=== PATIENT | male | born 1965 | race Caucasian/White ===

== ENCOUNTER 2017-05-12 18:32 | Emergency (ER) | payer SELFPAY ==
--- NOTE | 2017-05-12 19:01 | PDOC ---
History of Present Illness - General History Source: Patient Exam Limitations: No Limitations - History of Present Illness Initial Comments: 05/12/17 19:18 The patient presents to the emergency department complaining of a throbbing right thumb pain with minimal bleeding underneath thumbnail. He caught his right thumb on a shelf at work. His last tetanus is unknown. He iced his thumb, otherwise no pain. He denies experiencing similar symptoms in the past. He denies any other complaints/symptoms at this time. <AlfieKennasailaja - Last Filed: 05/12/17 19:21> - General History Source: Patient Exam Limitations: No Limitations - History of Present Illness Initial Comments: A portion of this note was documented by scribe services under my direction. I have reviewed the details of the note, within reason, and agree with the documentation. The case summary and management plan written by me. This is a 51-year-old male who comes in complaining of hitting his thumb on a shelf at work. Patient is complaining of bleeding under his thumb. And a throbbing pain. PAST MEDICAL HISTORY: no significant history PAST SURGICAL HISTORY: no significant history FAMILY HISTORY: no pertinant history SOCIAL HISTORY: Pt lives with family and is employed. MEDICATIONS: reviewed ALLERGIES: As per nursing notes Review of Systems General: No fevers or chills, no weakness, no weight loss HEENT: No change in vision. No sore throat,. No ear pain CardioVascular: No chest pain or shortness of breath Respiratory:No cough, or wheezing. Gastrointestinal: no nausea, vomitting, diarrhea or constipation, No rectal bleeding Genitourinary: No dysuria, hematuria, or frequency Musculoskeletal: Right thumb pain and discomfort Neurologic: No headache, vertigo, dizziness or loss of consciousness Psychiatric: nor depression Skin: No rashes or easy bruising Endocrine: no increased thirst or abnormal weight change Allergic: no skin or latex allergy All other systems reviewed and normal GENERAL: The patient is awake, alert, and fully oriented, in no acute distress. HEAD: Normal with no signs of trauma. EYES: Pupils equal, round and reactive to light, extraocular movements intact, sclera anicteric, conjunctiva clear. EXTREMITIES: Normal range of motion, no edema. NEUROLOGICAL: Normal speech, normal gait. grossly intact PSYCH: Normal mood, normal affect. SKIN: Warm, Dry, normal turgor, no rashes or lesions noted. X-ray right thumb no acute fracture Procedure nail trephination right thumb sub ungual hematoma Subungual hematoma was drained via cautery patient tolerated well. Assessment and plan: This is a 51-year-old male who has a proximally 30% subungual hematoma that was drained with improvement of his symptoms. Patient had an x-ray that was negative for any acute pathology. Patient discharged home [facility] Dr. here the patient 05/12/17 20:55 <Luanne Mcdaniels I - Last Filed: 05/12/17 20:57> - General Chief Complaint: Pain Stated Complaint: RT THUMB PAIN Time Seen by Provider: 05/12/17 19:01 Past History <Tiffany Judge - Last Filed: 05/12/17 19:21> <Luanne Mcdaniels I - Last Filed: 05/12/17 20:57> - Past Medical History Allergies/Adverse Reactions: Allergies Allergy/AdvReac Type Severity Reaction Status Date / Time No Known Allergies Allergy Verified 05/12/17 18:33 Review of Systems - Review of Systems Able to Perform ROS?: Yes All Other Systems: Reviewed and Negative <Tiffany Judge - Last Filed: 05/12/17 19:21> *Physical Exam - Physical Exam Comments: 05/12/17 19:22 GENERAL: The patient is awake, alert, and fully oriented, in no acute distress. HEAD: Normal with no signs of trauma. EYES: Pupils equal, round and reactive to light, extraocular movements intact, sclera anicteric, conjunctiva clear. EXTREMITIES: Normal range of motion, no edema. NEUROLOGICAL: Normal speech, normal gait. PSYCH: Normal mood, normal affect. SKIN: 30% subungal hematoma noted on the right thumb. <Tiffany Judge - Last Filed: 05/12/17 19:21> *DC/Admit/Observation/Transfer - Attestations Scribe Attestion: 05/12/17 19:21 Documentation prepared by Tiffany Judge, acting as medical staffing coordinator for Luanne Mcdaniels MD/DO. <Tiffany Judge - Last Filed: 05/12/17 19:21> - Discharge Dispostion Admit: No <MarjanDebbiJanice limonvipinazaleabraxton Gonzalez - Last Filed: 05/12/17 20:57> Diagnosis at time of Disposition: Subungual hematoma of right thumb Qualifiers: Encounter type: initial encounter Qualified Code(s): S60.111A - Contusion of right thumb with damage to nail, initial encounter - Discharge Dispostion Disposition: HOME Condition at time of disposition: Good - Patient Instructions Additional Instructions: Tylenol or motrin as needed for pain. wear a bandaid over the thumb until no furthur drainage. Follow up with your doctor as needed. Return for worsening symptoms or any concerns. Thankyou for coming to [facility] ED today.
[2017-05-12 19:22] VITALS: BP 141/91; PULSE 79; TEMP 98.4; BMI 25.0
[2017-05-12] MEDS ORDERED: IBUPROFEN 600 MG TABLET (FP) PO ONE ×2 (19:32→19:33)
== END 2017-05-12 19:37 | disposition home or self-care (01) ==
LOC: FER 18:32
PROC: 0H9QXZZ Drainage of Finger Nail, External Approach (ICD-10-PCS; principal; 2017-05-12)
DX: S60.111A Contusion of right thumb with damage to nail, initial encounter (principal); X58.XXXA Exposure to other specified factors, initial encounter; Y93.89 Activity, other specified; Y92.9 Unspecified place or not applicable
CPT/HCPCS: 73140-TC-RT-FY; 99281-25